=== PATIENT | male | born 1960 ===

== ENCOUNTER → 2018-07-05 | Outpatient (REF) | LOC: AMB 17:04 | PROVIDERS: ATTEND Nurse Practitioner | DX: S22.49XA Multiple fractures of ribs, unspecified side, initial encounter for closed fracture (principal); S42.301A Unspecified fracture of shaft of humerus, right arm, initial encounter for closed fracture; M54.9 Dorsalgia, unspecified; R06.00 Dyspnea, unspecified; S41.111A Laceration without foreign body of right upper arm, initial encounter; R07.9 Chest pain, unspecified; V27.0XXA Motorcycle driver injured in collision with fixed or stationary object in nontraffic accident, initial encounter ==